=== PATIENT | female | born 1955 | race Native Hawaiian/Other Pacific Islander ===

== ENCOUNTER 2020-08-31 16:40 | Outpatient (CLI) | payer OTHER | END 2020-08-31 19:54 | disposition home or self-care (01) | LOC: LABW 16:40 | PROVIDERS: ATTEND Internal Medicine | DX: M54.5 Low back pain (principal) | CPT/HCPCS: 81000; 87088 ==

== ENCOUNTER 2021-08-12 09:00 | Outpatient (CLI) | payer OTHER ==
[2021-08-12 10:08] LABS: POTASSIUM 4.1 mmol/L (3.6-5.2)
== END 2021-08-12 20:56 | disposition home or self-care (01) ==
LOC: LABW 09:00
PROVIDERS: ATTEND Internal Medicine Cardiovascular Disease
DX: Z79.899 Other long term (current) drug therapy (principal)
CPT/HCPCS: 36415; 80048